=== PATIENT | female | born 1950 | race Caucasian/White ===

== ENCOUNTER 2019-06-28 05:38 | Emergency (ER) | payer OTHER ==
[~2019-06-28] VITALS: Ht 162.6 cm; Wt 59.0 kg
[2019-06-28] MEDS ORDERED: cloNIDine HCL 0.1 MG TAB PO ONE (06:30)
[2019-06-28 07:08] LABS: Basophils # (auto) 0.1 uL; Basophils % (auto) 1.2 % (0.0-2.0); Eosinophils # (auto) 0 uL; Eosinophils % (auto) 0.4 % (0.0-7.0); Hemoglobin 14.3 g/dL (12.2-16.2); Lymphocytes # (auto) 0.9 uL; Lymphocytes % (auto) 14.7 % (10.0-50.0); Mean Corpuscular Hemoglobin 31.1 pg (28.0-32.0); Mean Corpuscular Volume 91.7 fL (80.0-100.0); Monocytes # (auto) 0.5 uL; Neutrophils # (auto) 4.5 uL; Neutrophils % (auto) 75.7 % (37.0-80.0); Nucleated Red Blood Cells % 0.1 %; Platelet Count (auto) 297 10^3/uL (140-450); Red Blood Cells 4.58 10^6/uL (4.0-5.20); Red Cell Distribution Width 13.1 % (11.8-14.3)
[2019-06-28] MEDS ORDERED: LORazepam 0.5 MG TAB PO ONE (07:15)
[2019-06-28 07:29] LABS: Alcohol, Urine < 3.0 mg/dL (0-5); Amphetamine Screen, Urine NEGATIVE (NEGATIVE); Barbiturate Scree,Urine NEGATIVE (NEGATIVE); Benzodiazephine Screen, Urine NEGATIVE (NEGATIVE); Cannabinoid Screen, Urine NEGATIVE (NEGATIVE); Cocaine Screen, Urine NEGATIVE (NEGATIVE); Opiate Scree,Urine NEGATIVE (NEGATIVE)
[2019-06-28 07:30] LABS: Salicylate < 1.7 mg/dL (2.8-20.0)
[2019-06-28 07:32] LABS: Albumin 3.9 g/dL (3.4-5.0); Anion Gap 8 (5-15); Blood Alcohol < 3.0 mg/dL (0-5); Calcium 8.9 mg/dL (8.5-10.1); Carbon Dioxide 24 mmol/L (21-32); Chloride 106 mmol/L (98-107); Glucose 137 mg/dL (74-106); Potassium 3.8 mmol/L (3.5-5.1); Sodium 138 mmol/L (136-145)
[2019-06-28 07:39] LABS: Acetaminophen < 2.0 ug/mL (10-30)
[2019-06-28 07:42] LABS: Phencyclidine Screen, Urine NEGATIVE (NEGATIVE)
[2019-06-28 07:43] LABS: Alanine Aminotransferase 26 U/L (13-56); Alkaline Phosphatase 85 U/L (45-117); Aspartate Aminotransferase 25 U/L (15-37); BUN/Creatinine Ratio 19.2; Bilirubin, Total 0.5 mg/dL (0.2-1.0); Blood Urea Nitrogen 15 mg/dL (7-18); GFR African American 95 mL/min; GFR Non-African American 79 mL/min; Total Protein 8.2 g/dL (6.4-8.2)
[2019-06-28 11:22] VITALS: BP 119/71
== END 2019-06-28 11:28 | disposition home or self-care (01) ==
LOC: EDBD 05:38 → ER 05:38
DX: F41.9 Anxiety disorder, unspecified (principal); F32.9 Major depressive disorder, single episode, unspecified; E78.5 Hyperlipidemia, unspecified; I10 Essential (primary) hypertension
CPT/HCPCS: 36415; 80053; 80307; 80320; 80329; 85025